=== PATIENT | female | born 1960 | race Caucasian/White ===

== ENCOUNTER 2019-07-19 10:59 | Day surgery (SDC) | payer MEDICARE, MEDICAID ==
[~2019-07-19 10:59] MED LIST: Buffered Lidocaine 1% SYRIN* 1 ML/SYRINGE INTRADERM ONE; Famotidine IV* 10 MG/ML 2 ML (20 mg) IV ONE; Lactated Ringers 1000 ML Bag* 1,000 ML IV SCH
[2019-07-19] MEDS ORDERED: Naloxone* 0.4 MG/ML 1 ML VIAL IV PRN (12:25)
[2019-07-19 12:26] VITALS: BP 127/90
[2019-07-19] MEDS ORDERED: Lidocaine 1% MPF ** 5 ML VIAL ONE (12:54)
[2019-07-19] MEDS ORDERED: Propofol* 500 MG/50 ML BTL ONE (12:54)
[2019-07-19] MEDS ORDERED: Dexamethasone IV* 4 MG/ML 1 ML (4 MG) ONE (13:09)
[2019-07-19] MEDS ORDERED: Ondansetron INJ* 2 MG/ML VIAL ONE (13:09)
--- NOTE | 2019-07-20 00:04 | PRO ---
CC: Dr. Sera Huitron * ESOPHAGOGASTRODUODENOSCOPY AND COLONOSCOPY REPORT: DATE OF PROCEDURE: 07/19/19 PRIMARY CARE PHYSICIAN: Dr. Sera Huitron INDICATION FOR PROCEDURE: Epigastric pain, dysphagia, constipation. PROCEDURE PERFORMED: Complete esophagogastroduodenoscopy with biopsies and complete colonoscopy to the terminal ileum with biopsy polypectomy x2. MEDICATIONS GIVEN: Please see anesthesia record. DESCRIPTION OF PROCEDURE: After the EGD and colonoscopy procedure including the risks, benefits, and alternatives with the risks not limited to perforation , surgery, missed lesions, and/or were explained to the patient, written informed consent was obtained, IV medication was given by the Anesthesia service and a bite block was placed between the teeth. The adult Olympus gastroscope was then inserted into the patient's oropharynx into the tubular esophagus. Tubular esophagus was normal in appearance. Biopsies were taken to the mid and distal esophagus to rule out EoE and microscopic reflux disease. There was no stricturing or narrowing apparent. The scope was then advanced to the lower esophageal sphincter into the stomach. Direct views were normal. A biopsy was taken for CLOtesting given her symptomatology. On retroflexion, a small sliding hiatal hernia was appreciated along with the small nonbleeding Geovani erosion. The scope was then advanced through the widely patent pylorus into the duodenal bulb, C-loop, and distal duodenum; these were normal in appearance. Biopsies were taken to rule out villous blunting. The scope was then removed from the patient. She tolerated the procedure well. She was then rotated, given additional IV sedation medication. A rectal exam was performed. The rectal exam was unremarkable. The adult Olympus colonoscope was then inserted into the patient's rectum and advanced very carefully through the entirety of the colon into the cecal base. Cecal base was carefully inspected and normal in appearance. The terminal ileal valve was identified and intubated x4 to 5 cm and normal. A photograph was taken of the cecal cap. The quality of the preparation was fair requiring quite a bit of suctioning, but in the end I think decent views were able to be obtained. Over the next 8 minutes, the scope was carefully withdrawn, inspecting the mucosa. A small polyp was removed in the cecum with biopsy polypectomy. On further withdrawal to the rectum, a small polyp was removed with biopsy polypectomy. The anal canal was quite small and I was unable to retroflex, however, I did traverse the canal multiple times and small internal hemorrhoids were appreciated and good views were obtained. The scope was then removed from the patient. She tolerated the procedure well. She returned to the recovery room in stable condition. IMPRESSION: 1. Complete esophagogastroduodenoscopy with biopsies. 2. Normal esophagus, biopsy taken of mid and distal to rule out eosinophilic esophagitis. 3. Small sliding hiatal hernia with associated small Geovani erosion, nonbleeding. 4. Otherwise normal esophagogastroduodenoscopy. Biopsies taken as above. 5. Complete colonoscopy of the terminal ileum. 6. Fair prep. 7. Biopsy polypectomy x2 as above. 8. Grade I internal hemorrhoids. RECOMMENDATIONS: Recommend fiber on a daily basis to help her hemorrhoids, suspect this was the etiology of her rectal bleeding that she had described to me in the office. Her dysphagia has improved with dietary modifications. We will follow up on the results of the biopsies to make sure there is no eosinophilic esophagitis component but otherwise, we would continue symptomatic treatment. Would recommend a repeat colonoscopy in 5 years pending pathology. [id number]/[facility] #: [id number] [facility] CENTERChintan
== END 2019-07-19 15:00 | disposition home health service (06) ==
LOC: OR 10:59
PROVIDERS: ATTEND Internal Medicine Gastroenterology
DX: R10.13 Epigastric pain (principal); R13.10 Dysphagia, unspecified; K59.00 Constipation, unspecified; K21.0 Gastro-esophageal reflux disease with esophagitis; D12.7 Benign neoplasm of rectosigmoid junction; D12.0 Benign neoplasm of cecum; K64.8 Other hemorrhoids; F41.8 Other specified anxiety disorders; I10 Essential (primary) hypertension; J45.909 Unspecified asthma, uncomplicated; K58.9 Irritable bowel syndrome, unspecified; M19.90 Unspecified osteoarthritis, unspecified site; E03.9 Hypothyroidism, unspecified
CPT/HCPCS: 81025; 87077; 88305; J1100; J2405; J2704

== ENCOUNTER 2023-02-28 10:57 | Observation (INO) ==
[2023-02-28 11:33] LABS: Urine Appearance Cloudy; Urine Bilirubin Negative (Negative); Urine Blood Negative (Negative); Urine Color Yellow; Urine Glucose Negative (Negative); Urine Ketones Negative (Negative); Urine Nitrite Negative (Negative); Urine Protein Negative (Negative); Urine Specific Gravity 1.018 (1.002-1.030); Urine Urobilinogen Negative (Negative)
[2023-02-28] MEDS ORDERED: NS 0.9% 1000 ml BAG 1,000 ML IV ONE (12:03)
[2023-02-28 13:07] LABS: ABS Basophils 0.1 10^3/uL (0.0-0.1); ABS Lymphocytes 1.8 10^3/uL (1.0-4.8); ABS Monocytes 0.9 10^3/uL (0.0-0.9); ABS Neutrophils 10.5 10^3/uL (1.5-7.6); Eosinophil % 0.2 %; Hematocrit 39.9 % (35-45); Hemoglobin 13.3 g/dL (11.5-14.3); Lymphocyte % 13.7 %; Mean Corpuscular Hemoglobin 29.1 pg (27-33); Mean Corpuscular Hgb Conc 33.5 g/dL (31-36); Mean Corpuscular Volume 86.9 fL (80-97); Mean Platelet Volume 7.5 fL (7.5-11.2); Platelet Count 302 10^3/uL (150-450); Red Blood Count 4.59 10^6/uL (3.63-4.92); White Blood Count 13.3 10^3/uL (3.8-11.8)
[2023-02-28 13:33] LABS: Albumin 4.3 g/dL (3.2-5.2); Albumin/Globulin Ratio 1.5 (1-3); C Reactive Protein 41.13 mg/L (<8.01); Calcium 9.1 mg/dL (8.6-10.3); Creatinine, Serum 1.03 mg/dL (0.51-0.95); Globulin 2.8 g/dL (2-4); Magnesium 2.1 mg/dL (1.9-2.7); Phosphorus 3.6 mg/dL (2.5-5.0); Potassium 3.7 mmol/L (3.5-5.0); Total Bilirubin 0.5 mg/dL (0.2-1.0); Total Protein 7.1 g/dL (6.4-8.9); eGFR CKD-EPI 61.9 (>60)
[2023-02-28 13:39] LABS: HCG Pregnancy 2.95 mIU/mL
[2023-02-28] MEDS ORDERED: metroNIDAZOLE IV 500 MG/100ML 500 MG/100 ML BAG IVPB ONE (15:18)
[2023-02-28] MEDS ORDERED: Ciprofloxacin 400mg IVPREMIX 400 MG/200 ML BAG IVPB ONE (15:18)
[2023-02-28] MEDS ORDERED: Ondansetron 4 mg VIAL 2 MG/ML 2 ml VIAL IV PRN (17:03)
[2023-02-28] MEDS ORDERED: Al Hydrox/Mg Hydrox/Simet LIQ 30 ML UDC PO PRN (17:03)
[2023-02-28 17:38] LABS: High Sensitivity Troponin 1 Hr 3 pg/mL (<15)
[2023-02-28] MEDS ORDERED: Enoxaparin 40 MG/0.4 ML SYR SUBCUT SCH (18:00)
[2023-03-01 05:59] LABS: ABS Basophils 0.1 10^3/uL (0.0-0.1); ABS Lymphocytes 1.8 10^3/uL (1.0-4.8); ABS Monocytes 0.8 10^3/uL (0.0-0.9); ABS Neutrophils 6.5 10^3/uL (1.5-7.6); Eosinophil % 0.4 %; Hematocrit 36.1 % (35-45); Hemoglobin 12.3 g/dL (11.5-14.3); Lymphocyte % 19.3 %; Mean Corpuscular Hemoglobin 29.7 pg (27-33); Mean Corpuscular Hgb Conc 33.9 g/dL (31-36); Mean Corpuscular Volume 87.4 fL (80-97); Mean Platelet Volume 7.4 fL (7.5-11.2); Platelet Count 273 10^3/uL (150-450); Red Blood Count 4.13 10^6/uL (3.63-4.92); Red Cell Distribution Width 14.3 % (12-17); White Blood Count 9.2 10^3/uL (3.8-11.8)
[2023-03-01 06:26] LABS: Calcium 8.3 mg/dL (8.6-10.3); Creatinine, Serum 0.97 mg/dL (0.51-0.95); Potassium 3.4 mmol/L (3.5-5.0); eGFR CKD-EPI 66.5 (>60)
[2023-03-01] MEDS ORDERED: Mometasone/Formoter 200/5 MDI INH SCH (07:00)
[2023-03-01] MEDS ORDERED: Polyethylene Glycol 3350 17 GM PACKET PO PRN (10:29)
[2023-03-01] MEDS ORDERED: cefTRIAXone 2 gm/50 mL D5W 2 GM/50 ML BAG IV SCH (14:00)
[2023-03-01 15:01] VITALS: BP 103/67
== END 2023-03-01 16:50 | disposition home or self-care (01) ==
LOC: EDHOLD 10:57 → ED 10:57 → SUATTDRO 17:03 → MED 21:09
PROVIDERS: ADMIT Internal Medicine; ATTEND Internal Medicine